=== PATIENT | male | born 1945 | race Caucasian/White ===

== ENCOUNTER 2016-11-25 13:04 | Outpatient (CLI) | payer MEDICARE, OTHER | END 2016-11-25 13:05 | disposition short-term general hospital (02) | LOC: EMS 13:04 | PROVIDERS: ATTEND Surgery | DX: R53.1 Weakness (principal); R63.0 Anorexia | CPT/HCPCS: A0425; A0427 ==

== ENCOUNTER 2017-01-16 07:55 | Outpatient (CLI) | payer MEDICARE, OTHER | END 2017-01-16 07:56 | disposition short-term general hospital (02) | LOC: EMS 07:55 | PROVIDERS: ATTEND Surgery | DX: R11.2 Nausea with vomiting, unspecified (principal); R42 Dizziness and giddiness | CPT/HCPCS: A0425; A0427 ==

== ENCOUNTER 2020-04-06 22:07 | Outpatient (CLI) | payer MEDICARE, OTHER | END 2020-04-06 22:08 | disposition short-term general hospital (02) | LOC: EMS 22:07 | PROVIDERS: ATTEND Surgery | DX: R11.2 Nausea with vomiting, unspecified (principal) | CPT/HCPCS: A0425; A0429 ==

== ENCOUNTER 2023-08-31 15:56 | Outpatient (CLI) | payer MEDICARE, OTHER | END 2023-08-31 23:59 | disposition short-term general hospital (02) | LOC: EMS 15:56 | DX: R53.1 Weakness (principal); R53.81 Other malaise; R26.81 Unsteadiness on feet; R00.0 Tachycardia, unspecified | CPT/HCPCS: A0425; A0428 ==